=== PATIENT | female | born 1955 | race Caucasian/White ===

== ENCOUNTER 2016-10-05 21:40 | Emergency (ER) | payer OTHER ==
[2016-10-05] MEDS ORDERED: HYDROCODONE/ACETAMINOPHEN 5-325 MG TABLET PO ONE (22:13)
--- NOTE | 2016-10-05 22:17 | ER Document Report ---
ED Extremity Problem, Lower - General Mode of Arrival: Ambulatory Information source: Patient - HPI Patient complains to provider of: Injury, Pain, Swelling Location: Ankle - right Occurred: Just prior to arrival Quality of pain: Achy Recent injury: Yes - General Chief Complaint: Ankle Injury Stated Complaint: RIGHT ANKLE INJURY Time Seen by Provider: 10/05/16 22:01 Notes: Patient is a 60 year old female that presents to the emergency department today with complains of right ankle pain. Patient states she rolled her right ankle after falling off of a curb. Patient states she is unable to bear with and has limited range of motion. Patient has good sensation and normal distal pulses. Patient denies any other injuries during the fall. (BOZENA LEACH) - Related Data Allergies/Adverse Reactions: hydromorphone [From Dilaudid] Allergy (Verified 10/05/16 22:49) Past Medical History - General Information source: Patient - Social History Smoking Status: Never Smoker Cigarette use (# per day): No Frequency of alcohol use: None Drug Abuse: None Lives with: Family Family History: Reviewed & Not Pertinent - Past Medical History Cardiac Medical History: Reports: Hx Hypertension Surgical Hx: Negative Review of Systems - Review of Systems Constitutional: No symptoms reported EENT: No symptoms reported Cardiovascular: No symptoms reported Respiratory: No symptoms reported Gastrointestinal: No symptoms reported Genitourinary: No symptoms reported Female Genitourinary: No symptoms reported Musculoskeletal: See HPI, Joint pain - right ankle pain Skin: No symptoms reported Hematologic/Lymphatic: No symptoms reported Neurological/Psychological: No symptoms reported -: Yes All other systems reviewed and negative Physical Exam - Vital signs Vitals: Temp Pulse Resp BP Pulse Ox 98.4 F 76 18 161/72 H 96 10/05/16 21:53 10/05/16 21:53 10/05/16 21:53 10/05/16 21:53 10/05/16 21:53 - Notes Notes: Physical Exam: General: Alert, appears well. HEENT: Normocephalic. Atraumatic. PERRLA. Extraocular movements intact. Oropharynx clear. Neck: Supple. Respiratory: No respiratory distress. Abdominal: Normal Inspection. No distension. Extremities: Moves all four extremities. Neurological: Normal cognition. AAOx4. Normal speech. Psychological: Swelling, tenderness with palpation over right talus, limited ROM secondary to pain. Skin: Warm. Dry. Normal color. (BOZENA LEACH) Course - Re-evaluation Re-evalutation: 10/05/16 22:43 X-ray-no fracture, no dislocation (NATA BUTT) - Vital Signs Vital signs: Temp Pulse Resp BP Pulse Ox 98.4 F 76 18 161/72 H 96 10/05/16 21:53 10/05/16 21:53 10/05/16 21:53 10/05/16 21:53 10/05/16 21:53 Discharge - Discharge Clinical Impression: Right ankle sprain Qualifiers: Encounter type: initial encounter Involved ligament of ankle: unspecified ligament Qualified Code(s): S93.401A - Sprain of unspecified ligament of right ankle, initial encounter Condition: Good Disposition: HOME, SELF-CARE Instructions: Ice & Elevation ([facility]), Soft Ankle Splint ([facility]), Use of Crutches ( [facility]), Oral Narcotic Medication ([facility]) Prescriptions: Ibuprofen [Motrin 600 mg Tablet] 600 mg PO Q8HP PRN #90 tablet PRN Reason: Hydrocodone/Acetaminophen [[place] 5-325 mg Tablet] 1 tab PO QID PRN #16 tablet PRN Reason: For Pain Referrals: JASON TSE DO [ACTIVE STAFF] - Follow up as needed Scribe Attestation: 10/05/16 22:45 I personally performed the services described in the documentation, reviewed and edited the documentation which was dictated to the scribe in my presence, and it accurately records my words and actions. (NATA BUTT) Scribe Documentation - Scribe Written by Scribe:: Lyndsey Venegas, 10/05/16 [id number] acting as scribe for :: Martinez
--- NOTE | 2016-10-05 22:32 | RADIOLOGY REPORT (SQ) ---
EXAM DESCRIPTION: ANKLE RIGHT COMPLETE COMPLETED DATE/TIME: 10/05/2016 10:19 pm REASON FOR STUDY: pain COMPARISON: None. NUMBER OF VIEWS: Three views. TECHNIQUE: AP, lateral, and oblique without weight bearing radiographic images acquired of the right ankle. LIMITATIONS: None. FINDINGS: MINERALIZATION: Normal. BONES: No acute fracture or dislocation. No worrisome bone lesions. No significant osteophytes. JOINTS: No effusions. SOFT TISSUES: No soft tissue swelling. No foreign body. OTHER: No other significant finding. IMPRESSION: No evidence for acute fracture or dislocation. Other findings as noted above TECHNICAL DOCUMENTATION: JOB ID: [id number] [employer]- All Rights Reserved
[2016-10-06 01:41] VITALS: BP 132/68
== END 2016-10-05 23:00 | disposition home or self-care (01) ==
LOC: ER 21:40
DX: S93.401A Sprain of unspecified ligament of right ankle, initial encounter (principal); W10.1XXA Fall (on)(from) sidewalk curb, initial encounter; I10 Essential (primary) hypertension
CPT/HCPCS: 99283; 73610; L1902